=== PATIENT | female | born 1980 | race Caucasian/White ===

== ENCOUNTER 2019-03-17 14:02 | Outpatient (CLI) | payer OTHER ==
--- NOTE | 2019-03-17 15:54 | ULT ---
THYROID ULTRASOUND: Date: 03/17/19 INDICATION: Hypothyroidism. History of thyroid cancer and right lobe thyroidectomy. COMPARISON: 01/22/12. FINDINGS: Left lobe is homogeneous and has normal size, measuring 1.3 x 2.5 x 0.8 cm. Isthmus is normal measure d at approximately 3.0 mm. Right lobe has been surgically removed. IMPRESSION: Residual thyroid is unremarkable. POS: [facility]
== END 2019-03-17 14:03 | disposition home or self-care (01) ==
LOC: SCSULT 14:02
PROVIDERS: ATTEND Internal Medicine Endocrinology, Diabetes & Metabolism
DX: Z08 Encounter for follow-up examination after completed treatment for malignant neoplasm (principal); Z85.850 Personal history of malignant neoplasm of thyroid; Z98.890 Other specified postprocedural states
CPT/HCPCS: 76536